=== PATIENT | female | born 1970 | race Caucasian/White ===

== ENCOUNTER 2017-05-09 01:42 | Emergency (ER) | payer OTHER ==
[~2017-05-09] VITALS: Ht 160 cm; Wt 72.9 kg
[2017-05-09 01:45] VITALS: BP 150/120
[2017-05-09] MEDS ORDERED: DIPH,PERTUSS(ACELL),TET VAC/PF 0.5 ML IM-VACC ONE ×2 (02:15→02:30)
[2017-05-09] MEDS ORDERED: LIDOCAINE 1%, 20ML ONE (02:15)
[2017-05-09] MEDS ORDERED: LIDOCAINE 1%, 20ML INFIL ONE (02:30)
== END 2017-05-09 03:11 | disposition home or self-care (01) ==
LOC: ED 03:05
DX: S61.412A Laceration without foreign body of left hand, initial encounter (principal); W45.8XXA Other foreign body or object entering through skin, initial encounter; Y93.89 Activity, other specified; Y92.89 Other specified places as the place of occurrence of the external cause; Y99.8 Other external cause status
CPT/HCPCS: 12001; 90471; 90715